=== PATIENT | female | born 1995 | race Two or more races ===

== ENCOUNTER 2018-05-24 21:45 | Emergency (ER) | payer MEDICAID ==
[~2018-05-24] VITALS: Ht 149.9 cm; Wt 44.5 kg
[2018-05-24 23:22] VITALS: BP 124/75
== END 2018-05-24 23:24 ==
LOC: ER 21:46
DX: Z02.89 Encounter for other administrative examinations (principal); M54.2 Cervicalgia; M54.9 Dorsalgia, unspecified; M25.511 Pain in right shoulder; Z91.030 Bee allergy status; V49.88XA Car occupant (driver) (passenger) injured in other specified transport accidents, initial encounter; Y93.89 Activity, other specified; Y92.413 State road as the place of occurrence of the external cause; Y99.9 Unspecified external cause status
CPT/HCPCS: 70450; 72125; 72128; 72131; 99284

== ENCOUNTER 2020-01-13 03:25 | Emergency (ER) | payer OTHER, MEDICAID ==
[~2020-01-13] VITALS: Ht 149.9 cm; Wt 44.0 kg
[2020-01-13 03:32] VITALS: BP 127/84
--- NOTE | 2020-01-13 03:43 | NUR ---
CONTACTED [facility] - THEY WERE NOT ABLE TO REACH AN ADVOCATE AFTER 3 ATTEMPTS. THEY STATED THAT THEY WOULD CALL US BACK.
--- NOTE | 2020-01-13 03:49 | NUR ---
JOSÉ MIGUEL HOROWITZ RN HAS BEEN NOTIFIED AND WILL RESPOND.
--- NOTE | 2020-01-13 04:39 | NUR ---
this sart rn has arrived and is readying the room for examination.
--- NOTE | 2020-01-13 04:56 | NUR ---
case#[id number] - recontacted [facility] - the answering service states they have left messages with all the advocates and the landscape supervisor and no one has called back
--- NOTE | 2020-01-13 05:00 | NUR ---
pt stated she could not wait any longer and needed to void. she was instructed to not wipe and urine sample was labeled and kept in the room with the patient.
[2020-01-13] MEDS ORDERED: metroNIDAZOLE 500mg tablet PO ONE (05:30)
[2020-01-13] MEDS ORDERED: azithromycin 250mg tablet PO ONE (05:30)
[2020-01-13] MEDS ORDERED: CefTRIAXone 250MG IM Kit w/LIDOcaine IM ONE (05:30)
--- NOTE | 2020-01-13 05:42 | NUR ---
rpd at bedside still conducting investigation at this time, no advocate has yet to return call from [facility] safe place.
[2020-01-13 06:04] LABS: URINE HCG NEGATIVE (NEG)
[2020-01-13 06:06] LABS: CLARITY,URINE CLEAR (Clear); COLOR,URINE YELLOW (Yellow); GLUCOSE, URINE NEGATIVE (Neg); KETONES,URINE NEGATIVE (Neg); LEUKOCYTE ESTERASE ,URINE NEGATIVE (Neg); NITRITES, URINE NEGATIVE (Neg); OCCULT BLOOD,URINE NEGATIVE (Neg); PROTEIN,URINE NEGATIVE (Neg); UROBILINOGEN,URINE 0.2 E.U/dL (0.2-1.0)
[2020-01-13 06:09] LABS: UA COLLECTION TYPE VOIDED
--- NOTE | 2020-01-13 06:27 | NUR ---
Luana advocate from [facility] called and will be here in approx 20 mins
== END 2020-01-13 09:15 | disposition home or self-care (01) ==
LOC: ER 03:26 → EEVIPCON 03:26 → ER 09:15
DX: T74.21XA Adult sexual abuse, confirmed, initial encounter (principal); Z91.030 Bee allergy status; Z88.8 Allergy status to other drugs, medicaments and biological substances; X58.XXXA Exposure to other specified factors, initial encounter; Y93.89 Activity, other specified; Y92.89 Other specified places as the place of occurrence of the external cause; Y99.8 Other external cause status
CPT/HCPCS: 81003; 81025; 96372; 99284; J0696

== ENCOUNTER 2020-12-09 03:03 | Emergency (ER) | payer MEDICAID, OTHER ==
[~2020-12-09] VITALS: Ht 172.7 cm; Wt 43.6 kg
[2020-12-09 03:08] VITALS: BP 127/87
== END 2020-12-09 03:35 | disposition home or self-care (01) ==
LOC: ER 03:04
DX: F41.0 Panic disorder [episodic paroxysmal anxiety] (principal); F10.129 Alcohol abuse with intoxication, unspecified; R06.02 Shortness of breath; F12.90 Cannabis use, unspecified, uncomplicated; Z72.89 Other problems related to lifestyle; Z91.030 Bee allergy status; Z88.8 Allergy status to other drugs, medicaments and biological substances; Y90.9 Presence of alcohol in blood, level not specified
CPT/HCPCS: 99281